=== PATIENT | male | born 1985 | race Caucasian/White ===

== ENCOUNTER 2018-01-25 16:22 | Emergency (ER) | payer MEDICAID, OTHER ==
[2018-01-25] MEDS ORDERED: Sodium Chloride 0.9% 10 ML Syringe FLUSH PRN (16:46)
--- NOTE | 2018-01-25 16:49 | EDM.PDOC ---
ED HPI GENERAL MEDICAL PROBLEM - General Chief Complaint: Headache Stated Complaint: Headache Time Seen by Provider: 01/25/18 16:40 Source of Information: Reports: Patient, RN, RN Notes Reviewed History Limitations: Reports: No Limitations - History of Present Illness INITIAL COMMENTS - FREE TEXT/NARRATIVE: Patient presents to the ED at [facility] complaining of a headache that started last Thursday. Patient states his last headache was several years ago. He states this headache is located on the right side of his head. He complains of photophobia. He feels very nauseated. Has not vomited. No recent infections to cause his headaches. He stay he is trying to stay well hydrated. Patient states he has tried Tylenol and Advil with minimal relief. He states his peripheral vision is blurry. No problems with ambulation. Onset: Gradual Onset Date: 01/22/18 Duration: Constant, Getting Worse Location: Reports: Head Posterior Headache Pain Score (Numeric/FACES): 4 - Related Data Allergies Allergy/AdvReac Type Severity Reaction Status Date / Time No Known Allergies Allergy Verified 01/25/18 16:32 Home Meds: Home Meds . [No Known Home Meds] 10/24/15 [History] Past Medical History - Past Health History Medical/Surgical History: Denies Medical/Surgical History Neurological History: Reports: Migraines Social & Family History - Tobacco Use Smoking Status *Q: Unknown Ever Smoked ED ROS GENERAL - Review of Systems Review Of Systems: See Below Constitutional: Denies: Fever, Chills, Weakness HEENT: Reports: Glasses, Vision Change Respiratory: Denies: Shortness of Breath, Cough Cardiovascular: Denies: Chest Pain, Palpitations GI/Abdominal: Reports: Nausea. Denies: Abdominal Pain, Vomiting Skin: Reports: No Symptoms Neurological: Reports: Headache. Denies: Confusion, Dizziness, Numbness, Paresthesia, Tingling - Physical Exam Exam: See Below Exam Limited By: No Limitations General Appearance: Alert, No Apparent Distress Eye Exam: Bilateral Eye: EOMI, Normal Inspection, PERRL Ears: Normal External Exam, Normal Canal, Normal TMs Head Exam: Atraumatic, Normocephalic Neck: Supple Respiratory/Chest: No Respiratory Distress, Lungs Clear, Normal Breath Sounds Cardiovascular: Normal Peripheral Pulses, Regular Rate, Rhythm GI/Abdominal: Normal Bowel Sounds, Soft, Non-Tender Neuro Exam (Abbreviated): Alert, Oriented Skin Exam: Warm, Dry, Intact, Normal Color Course - Vital Signs Last Recorded V/S: Last Vital Signs Temp 35.7 C 01/25/18 16:25 Pulse 99 01/25/18 17:42 Resp 16 01/25/18 17:42 BP 158/68 H 01/25/18 17:42 Pulse Ox 100 01/25/18 17:42 - Orders/Labs/Meds Orders: Active Orders 24 hr Category Date Time Status Head wo Cont [CT] Stat Exams 01/25/18 16:45 Taken Sodium Chloride 0.9% [Saline Flush] Med 01/25/18 16:46 Active 10 ml FLUSH ASDIRECTED PRN Peripheral IV Insertion Adult [OM.PC] Routine Oth 01/25/18 16:46 Ordered Medication Orders Sodium Chloride (Saline Flush) 10 ml FLUSH ASDIRECTED PRN PRN Reason: Keep Vein Open Meds: Medications Generic Name Dose Route Start Last Admin Trade Name Freq PRN Reason Stop Dose Admin Sodium Chloride 10 ml 01/25/18 16:46 Saline Flush FLUSH ASDIRECTED PRN Keep Vein Open Discontinued Medications Generic Name Dose Route Start Last Admin Trade Name Freq PRN Reason Stop Dose Admin Sodium Chloride 1,000 mls @ 999 mls/hr 01/25/18 16:47 01/25/18 17:00 Normal Saline IV 01/25/18 17:47 999 mls/hr ONETIME ONE Administration Chlorpromazine HCl 50 mg/ 52 mls @ 50 mls/hr 01/25/18 16:48 01/25/18 17:07 Sodium Chloride IV 01/25/18 17:50 50 mls/hr ONETIME ONE Administration Ketorolac Tromethamine 30 mg 01/25/18 16:48 01/25/18 17:05 Toradol IVPUSH 01/25/18 16:49 30 mg ONETIME ONE Administration Ondansetron HCl 4 mg 01/25/18 16:47 01/25/18 17:06 Zofran IVPUSH 01/25/18 16:48 4 mg ONETIME ONE Administration - Radiology Interpretation Free Text/Narrative:: CT Head: No plain CT evidence of acute intracranial process See scanned report in EMR CT Results Date: 01/25/18 CT Results Time: 17:16 Departure - Departure Time of Disposition: 17:55 Disposition: Home, Self-Care 01 Condition: Good Clinical Impression: Headache Qualifiers: Headache type: unspecified Headache chronicity pattern: acute headache Intractability: not intractable Qualified Code(s): R51 - Headache - Discharge Information Instructions: Tension Headache, Adult Forms: ED Department Discharge Additional Instructions: 1. Stay well hydrated and rest 2. May continue with Tylenol/Advil as needed 3. Your blood pressure indicates it may be a cause of your headache 4. Need to establish care with a PCP to address your blood pressure 5. Call us with any questions or concerns - Problem List Review Problem List Initiated/Reviewed/Updated: Yes - My Orders Last 24 Hours: My Active Orders 01/25/18 16:45 Head wo Cont [CT] Stat 01/25/18 16:46 Sodium Chloride 0.9% [Saline Flush] 10 ml FLUSH ASDIRECTED PRN Peripheral IV Insertion Adult [OM.PC] Routine - Assessment/Plan Last 24 Hours: My Active Orders 01/25/18 16:45 Head wo Cont [CT] Stat 01/25/18 16:46 Sodium Chloride 0.9% [Saline Flush] 10 ml FLUSH ASDIRECTED PRN Peripheral IV Insertion Adult [OM.PC] Routine Assessment:: Headache Plan: CT of Head is negative. No acute emergent indication for laboratory work. Patient given fluids and medications which resolved his headache. Patient remained stable and able to be discharged home. Needs to see PCP for follow up on blood pressure.
[2018-01-25] MEDS: Sodium Chloride 0.9% 1,000 ML IV ONE (17:00)
[2018-01-25] MEDS: Ketorolac 30 MG/ML SDV IVPUSH ONE (17:05)
[2018-01-25] MEDS: Ondansetron 4 MG/2 ML SDV IVPUSH ONE (17:06)
[2018-01-25 17:43] VITALS: BP 158/68
== END 2018-01-25 18:08 | disposition home or self-care (01) ==
LOC: VM.ED 16:22
DX: R51 Headache (principal)
CPT/HCPCS: 70450; 96365; 96375; 99284; J1885; J2405; J3230; J7030; J7050

== ENCOUNTER 2023-07-10 18:17 | Emergency (ER) | payer BC ==
[2023-07-10 18:31] VITALS: BP 122/64; PULSE 95
[2023-07-10] MEDS ORDERED: Ketorolac 30 MG/ML SDV IM ONE (18:33)
[2023-07-10] MEDS ORDERED: Metoclopramide 10 MG/2 ML SDV IM ONE (18:34)
[2023-07-10] MEDS ORDERED: diphenhydrAMINE 50 MG/ML SDV IM ONE (18:35)
== END 2023-07-10 19:08 | disposition home or self-care (01) ==
LOC: VM.ED 18:17
DX: G43.009 Migraine without aura, not intractable, without status migrainosus (principal); Z79.899 Other long term (current) drug therapy
CPT/HCPCS: 96372; 99283; J1200; J1885; J2765

== ENCOUNTER 2024-11-28 14:22 | Emergency (ER) | payer BC, OTHER ==
[2024-11-28 14:32] VITALS: BP 161/77; PULSE 89
[2024-11-28] MEDS: HYDROmorphone 0.5 MG/0.5 ML Syringe IVPUSH ONE ×2 (14:35→14:51)
[2024-11-28] MEDS: Ondansetron 4 MG/2 ML SDV IVPUSH ONE (14:50)
[2024-11-28] MEDS: Ketorolac 15 MG/ML SDV IVPUSH ONE (15:29)
[2024-11-28] MEDS: Acetaminophen/HYDROcodone 325-10 MG Tab PO ONE (15:30)
== END 2024-11-28 16:05 | disposition home or self-care (01) ==
LOC: VM.ED 14:22
DX: S92.312A Displaced fracture of first metatarsal bone, left foot, initial encounter for closed fracture (principal); S92.322A Displaced fracture of second metatarsal bone, left foot, initial encounter for closed fracture; W19.XXXA Unspecified fall, initial encounter
CPT/HCPCS: 29515; 73630; 96374; 96375; 99283; A9270; J1885; J2405